=== PATIENT | male | born 1950 | race African-American/Black ===

== ENCOUNTER 2024-09-01 21:32 | Emergency (ER) | payer OTHER ==
[~2024-09-01] VITALS: Ht 170.2 cm; Wt 74.0 kg
[2024-09-01 21:34] VITALS: TEMP 98.4; O2SAT 100
[2024-09-01] MEDS: SODIUM CHLORIDE 0.9% 1,000 ML IV ONE (22:15)
[2024-09-01 23:19] LABS: BASOPHILS % 0.2 % (0.0-2.0); EOSINOPHILS % 0.1 % (0.0-5.0); HEMATOCRIT. 39.5 % (42.0-52.0); HEMOGLOBIN. 13.1 g/dL (14.0-18.0); LYMPHOCYTES % 8.5 % (20.0-50.0); MEAN CORPUSCULAR HGB CONC 33.3 g/dL (31.0-37.0); MEAN CORPUSCULAR VOLUME 120.2 fL (80.0-94.0); MEAN PLATELET VOLUME 5.8 fl (7.4-10.4); MONOCYTES % 4.1 % (2.0-8.0); NEUTROPHILS % 87.1 % (40.0-76.0); PLATELET 404 x1000/uL (130-400); RED BLOOD CELL COUNT 3.28 mill/uL (4.7-6.1); RED CELL DISTRIBUTION WIDTH 14.4 % (11.6-14.6)
[2024-09-01 23:23] LABS: ADD RBC MORPHOLOGY YES; CHLORIDE 103 mEq/L (98-107); DIFFERENTIAL COMMENT 1; POTASSIUM 4.5 mEq/L (3.5-5.1); SODIUM 135 mEq/L (136-145)
[2024-09-01 23:24] LABS: CARBON DIOXIDE 22 mEq/L (21-32)
[2024-09-01 23:25] LABS: CALCIUM 9.8 mg/dL (8.7-10.4); PROTHROMBIN TIME 11.5 sec (9.6-11.0)
[2024-09-01 23:29] LABS: CREATININE 0.9 mg/dL (0.6-1.3); GLUCOSE 83 mg/dL (70-105)
[2024-09-01 23:30] LABS: TROPONIN I HIGH SENSITIVITY 14 ng/L (3.0-53); UREA NITROGEN BLOOD 13 mg/dL (9-23)
[2024-09-01 23:31] LABS: ALANINE AMINOTRANSFERASE 15 IU/L (10-49); ALBUMIN 4.1 g/dL (3.2-4.8); ASPARTATE AMINOTRANSFERASE 25 IU/L (<34)
[2024-09-01 23:32] LABS: BILIRUBIN DIRECT 0.2 mg/dL (<=3.0); BILIRUBIN TOTAL 0.5 mg/dL (0.1-1.0); PROTEIN TOTAL 7.7 g/dL (6.0-8.3)
[2024-09-01 23:40] LABS: ETHANOL BLOOD < 10 mg/dL (<10)
[2024-09-01] MEDS: ONDANSETRON HCL 4MG/2ML INJ IV STA (23:56)
[2024-09-01] MEDS: ACETAMINOPHEN 1000MG/100ML 100 ML IV ONE (23:57)
[2024-09-02 01:22] LABS: PLATELET ESTIMATE NORMAL
[2024-09-02] MEDS ORDERED: ONDA4TAB50 MT (01:55)
[2024-09-02 02:37] VITALS: BP 128/77; PULSE 98; RESP 18; O2SAT 100
[2024-09-02] MEDS ORDERED: IOHEXOL-300 100 ML BOTTLE ONE (22:58)
== END 2024-09-02 02:42 | disposition home or self-care (01) ==
LOC: ER 21:32
DX: R10.9 Unspecified abdominal pain (principal); Z00.00 Encounter for general adult medical examination without abnormal findings
CPT/HCPCS: 80076; 80048; 80320; 83605; 83690; 85025; 85610; 84484; 36415; 74177; 96361; 96365; 96375; 99285; J2405; J7030; Q9967; G0480; J0131